=== PATIENT | female | born 1950 | race Caucasian/White ===

== ENCOUNTER 2021-06-11 21:04 | Inpatient (IN) ==
[2021-06-11] MEDS ORDERED: ALUM/MAG/SIMETH/LIDO VISC 1:1 30 ML BOTTLE PO STA (22:13)
[2021-06-11] MEDS ORDERED: HYDROmorphone 2 MG/1 ML VIAL IV STA (22:13)
[2021-06-11] MEDS ORDERED: PIPERACILLIN/TAZOBACTAM 3,375 MG in SODIUM CHLORIDE 0.9% 100 ML IV STA (22:13)
[2021-06-11] MEDS ORDERED: PANTOPRAZOLE 40 MG VIAL IV STA (22:13)
[2021-06-11] MEDS ORDERED: ONDANSETRON 4 MG/2 ML VIAL IV STA (22:13)
[2021-06-11] MEDS ORDERED: metroNIDAZOLE INJ 500 MG/100 ML PREMIX IV STA (22:13)
[2021-06-11] MEDS ORDERED: SODIUM CHLORIDE 0.9% 500 ML IV STA (22:13)
[2021-06-11 23:19] LABS: Basophils % 0.2 % (0.0-0.8); Hematocrit 35.8 VOL% (35.7-47.0); Hemoglobin 11.4 GM/DL (12.0-16.0); Immature Granulocytes % 0.4 %; Immature Granulocytes Absolute 0.06 #; Lymphocytes # 0.4 10*3/uL (1.4-4.0); Lymphocytes % 2.4 % (21.3-54.2); Mean Corpuscular HGB Conc 31.8 GM/DL (32-36); Mean Corpuscular Volume 81.7 FL (87-102); Monocytes % 3.1 % (1.7-12.7); Neutrophils % 93.9 % (38.7-73.9); Platelet Count 347 T/CUMM (130-400); Red Blood Count 4.38 MC/CUMM (3.8-5.5); Red Cell Distribution Width 14.6 % (9.3-17.3); White Blood Count 15.2 T/CUMM (4-12)
[2021-06-11 23:30] LABS: Bilirubin,Urine Negative (Negative); Blood, Urine Negative (Negative); Calcium Oxalate Crystals,Urine Occasional /HPF (Few); Glucose,Urine (UA) Negative (Negative); Hyaline Casts,Urine 1 /LPF (0-3); Ketones,Urine 5 mg/dL (Negative); Mucus,Urine Moderate /LPF (Occasional); Nitrite,Urine Negative (Negative); Protein,Urine Negative; RBC,Urine 7 /HPF (0-4); Squamous Epithelial Cell,Urine Occasional /HPF (0-10); Urine Appearance CLEAR (Clear); Urine Color Yellow (Yellow); Urine Urobilinogen < 2.0 EU/DL (0.2-1.0)
[2021-06-11 23:40] LABS: Alanine Aminotransferase 18 U/L (13-56); Albumin 3.3 G/DL (3.4-5.0); Alkaline Phosphatase 91 U/L (45-117); Amylase 64 U/L (25-115); Aspartate Amino Transferase 18 U/L (0-37); Blood Urea Nitrogen 13 MG/DL (7-18); Carbon Dioxide 26 MMOL/L (21-32); Estimated Glom Filtration Rate 70 ML/MIN; Glucose 114 MG/DL (74-106); Osmolality,Calculated 275.7 MOS/KG (273-304); Potassium 3.7 MMOL/L (3.5-5.1); Sodium 138 MMOL/L (136-145); Total Protein 6.7 G/DL (6.4-8.2)
[2021-06-12] MEDS ORDERED: SODIUM CHLORIDE 0.9% 1,000 ML IV STA (01:00)
[2021-06-12] MEDS ORDERED: GLUCAGON 1 MG VIAL IM PRN (02:37)
[2021-06-12] MEDS ORDERED: DEXTROSE 50% 25 GM/50 ML VIAL IV PRN (02:37)
[2021-06-12] MEDS ORDERED: MORPHINE 2 MG/1 ML SYRINGE IV PRN (02:37)
[2021-06-12 02:45] LABS: Band Neutrophils 1 % (0-10); Lymphocytes 3 % (20-55); Segmented Neutrophils 92 % (50-85)
[2021-06-12 02:46] LABS: Hypochromasia 1+; Platelet Estimate Normal; Total Cells Counted 100
[2021-06-12] MEDS: SODIUM CHLORIDE 0.9% 1,000 ML IV SCH ×2 (03:06→13:34)
[2021-06-12 05:48] LABS: Basophils % 0.2 % (0.0-0.8); Eosinophils % 0.1 % (0.00-10.9); Hematocrit 31.5 VOL% (35.7-47.0); Hemoglobin 9.8 GM/DL (12.0-16.0); Immature Granulocytes % 0.5 %; Immature Granulocytes Absolute 0.05 #; Lymphocytes # 0.5 10*3/uL (1.4-4.0); Lymphocytes % 4.6 % (21.3-54.2); Mean Corpuscular HGB Conc 31.1 GM/DL (32-36); Mean Platelet Volume 9.1 FL (9.6-12.0); Monocytes % 7.6 % (1.7-12.7); Platelet Count 306 T/CUMM (130-400); Red Blood Count 3.84 MC/CUMM (3.8-5.5); Red Cell Distribution Width 14.9 % (9.3-17.3); White Blood Count 10.8 T/CUMM (4-12)
[2021-06-12 05:58] LABS: Calcium 8.1 MG/DL (8.5-10.1); Osmolality,Calculated 277.4 MOS/KG (273-304); Potassium 3.9 MMOL/L (3.5-5.1)
[2021-06-12 06:09] LABS: Anisocytosis 1+; Band Neutrophils 22 % (0-10); Lymphocytes 6 % (20-55); Ovalocytes Few; Platelet Estimate Normal; Segmented Neutrophils 66 % (50-85); Total Cells Counted 100
[2021-06-12] MEDS: PIPERACILLIN/TAZOBACTAM 3,375 MG in SODIUM CHLORIDE 0.9% 100 ML IV SCH ×3 (06:16→21:17)
[2021-06-12] MEDS ORDERED: metroNIDAZOLE INJ 500 MG/100 ML PREMIX IV SCH (08:00)
[2021-06-12] MEDS ORDERED: INFLUENZA VIRUS VACCINE 0.5 ML SYRINGE IM ONE (09:05)
[2021-06-12] MEDS: ENOXAPARIN 40 MG/0.4 ML SYRINGE SUBCUT SCH (10:21)
[2021-06-12] MEDS: PANTOPRAZOLE 40 MG VIAL IV SCH (10:21)
[2021-06-12] MEDS: ACETAMINOPHEN 325 MG TABLET PO PRN (19:30)
[2021-06-12] MEDS: diphenhydrAMINE 25 MG/10 ML UDCUP PO PRN (22:21)
[2021-06-13] MEDS: SODIUM CHLORIDE 0.9% 1,000 ML IV SCH ×2 (03:43→08:17)
[2021-06-13] MEDS: PIPERACILLIN/TAZOBACTAM 3,375 MG in SODIUM CHLORIDE 0.9% 100 ML IV SCH ×3 (06:09→22:45)
[2021-06-13] MEDS: PANTOPRAZOLE 40 MG VIAL IV SCH (08:16)
[2021-06-13] MEDS: ENOXAPARIN 40 MG/0.4 ML SYRINGE SUBCUT SCH (08:16)
[2021-06-13] MEDS: ACETAMINOPHEN 325 MG TABLET PO PRN (17:26)
[2021-06-13] MEDS: diphenhydrAMINE 25 MG/10 ML UDCUP PO PRN (21:30)
[2021-06-14] MEDS: SODIUM CHLORIDE 0.9% 1,000 ML IV SCH ×2 (04:30→10:20)
[2021-06-14 06:10] LABS: Basophils % 0.1 % (0.0-0.8); Eosinophils # 0.1 10*3/uL (0.0-0.87); Eosinophils % 1.3 % (0.00-10.9); Hematocrit 30.8 VOL% (35.7-47.0); Hemoglobin 9.5 GM/DL (12.0-16.0); Immature Granulocytes % 0.6 %; Immature Granulocytes Absolute 0.05 #; Lymphocytes # 0.6 10*3/uL (1.4-4.0); Lymphocytes % 7.5 % (21.3-54.2); Mean Corpuscular HGB Conc 30.8 GM/DL (32-36); Mean Platelet Volume 9.1 FL (9.6-12.0); Monocytes % 10.6 % (1.7-12.7); Neutrophils % 79.9 % (38.7-73.9); Platelet Count 286 T/CUMM (130-400); Red Blood Count 3.71 MC/CUMM (3.8-5.5); White Blood Count 7.8 T/CUMM (4-12)
[2021-06-14 06:15] LABS: Calcium 8.2 MG/DL (8.5-10.1); Potassium 3.4 MMOL/L (3.5-5.1)
[2021-06-14] MEDS: PANTOPRAZOLE 40 MG VIAL IV SCH (08:35)
[2021-06-14] MEDS: PIPERACILLIN/TAZOBACTAM 3,375 MG in SODIUM CHLORIDE 0.9% 100 ML IV SCH (08:35)
[2021-06-14] MEDS: ENOXAPARIN 40 MG/0.4 ML SYRINGE SUBCUT SCH (08:36)
[2021-06-14 12:00] VITALS: BP 117/62
[2021-06-14] MEDS: ACETAMINOPHEN 325 MG TABLET PO PRN (12:33)
== END 2021-06-14 14:15 | disposition home or self-care (01) | DRG 392 ==
LOC: N.ED 21:04 → N.EDINP 06-12 02:37 → N.3E 06-12 08:23
PROVIDERS: ADMIT Emergency Medicine; ATTEND Emergency Medicine